=== PATIENT | female | born 1960 | race Caucasian/White ===

== ENCOUNTER 2022-03-21 08:08 | Day surgery (SDC) | payer BC ==
[~2022-03-21] VITALS: Ht 160 cm; Wt 72.6 kg
[~2022-03-21 08:08] MED LIST: LIDOcaine 1% 30ml preserv. free vial SQ STA
[2022-03-21 08:20] VITALS: BP 162/103
[2022-03-21] MEDS ORDERED: VITA1TAB20 PO (08:36)
[2022-03-21] MEDS ORDERED: SERT-432 PO (08:36)
[2022-03-21] MEDS ORDERED: LACT10SO67 PO (08:36)
[2022-03-21] MEDS ORDERED: vitamin b12 (08:36)
[2022-03-21] MEDS ORDERED: PANT40TA54 PO (08:36)
[2022-03-21] MEDS ORDERED: THIA100T66 PO (08:36)
[2022-03-21] MEDS ORDERED: GABA300T25 (08:36)
[2022-03-21] MEDS ORDERED: vitamin D3 (08:37)
[2022-03-21] MEDS ORDERED: POTA2TAB6 PO (08:37)
[2022-03-21] MEDS ORDERED: CALC-627 PO (08:38)
[2022-03-21] MEDS ORDERED: MULT-1085 PO (08:39)
[2022-03-21 09:45] VITALS: BP 145/94
[2022-03-21] MEDS ORDERED: albumin 25% 100mL bottle x 1 IV PRN (10:25)
== END 2022-03-21 10:00 | disposition home or self-care (01) ==
LOC: SSTAY O 08:08
PROVIDERS: ATTEND Radiology Diagnostic Radiology
DX: R14.0 Abdominal distension (gaseous) (principal); K70.30 Alcoholic cirrhosis of liver without ascites; Z72.89 Other problems related to lifestyle; Z79.899 Other long term (current) drug therapy
CPT/HCPCS: 76705; A6258